=== PATIENT | male | born 1960 | race Caucasian/White ===

== ENCOUNTER 2017-12-19 06:02 | Emergency (ER) | payer MEDICARE ==
[~2017-12-19] VITALS: Ht 167.6 cm; Wt 96.8 kg
[2017-12-19 06:09] VITALS: BP 134/96; Ht 167.6 cm; Wt 96.8 kg
[2017-12-19] MEDS ORDERED: LEXAPRO5 MG (06:10)
[2017-12-19] MEDS ORDERED: BP MED (06:10)
[2017-12-19] MEDS ORDERED: PLAVIX75 MG (06:10)
[2017-12-19] MEDS ORDERED: VENTOLIN/PR2 MG/5 ML (06:10)
[2017-12-19] MEDS ORDERED: FUROSEMIDE10 MG/M1 (06:10)
[2017-12-19] MEDS ORDERED: DM MEDS (06:10)
[2017-12-19] MEDS ORDERED: COREG 3.1253.125 MG (06:10)
[2017-12-19] MEDS ORDERED: SINGULAIR 4 MG P4 MG (06:11)
[2017-12-19] MEDS ORDERED: BAYER CHEWABLE81 MG PO (06:11)
[2017-12-19] MEDS ORDERED: ADVAIR 100/501 DISK (06:11)
[2017-12-19 06:40] LABS: BASOPHILS 0.6 % (0-2); EOSINOPHILS 2.6 % (0-7); HEMATOCRIT 41.8 % (42.0-54.0); HEMOGLOBIN 14.8 g/dL (13.5-17.5); IMMATURE GRANULOCYTES 0.3 % (0-5); LYMPHOCYTES 28.3 % (15-50); MCHC 35.4 g/dL (31.0-37.0); MCV 87.4 fL (80.0-100.0); MONOCYTES 8.3 % (2-11); NEUTROPHILS 59.9 % (40-80); PLATELET COUNT 265 10x3/uL (130-400); RBC 4.78 10x6/uL (4.20-6.10); RDW 12.7 % (11.5-14.5); WBC 8.8 10x3/uL (4.8-10.8)
[2017-12-19 07:12] LABS: APPEARANCE CLEAR (CLEAR); COLOR STRAW (YELLOW); GLUCOSE 1000 mg/dL (NEGATIVE); NITRITE NEGATIVE (NEGATIVE); PROTEIN NEGATIVE (NEGATIVE)
[2017-12-19 07:13] LABS: BILIRUBIN NEGATIVE (NEGATIVE); KETONE NEGATIVE (NEGATIVE)
[2017-12-19 07:14] LABS: ALBUMIN 3.6 g/dL (3.4-5.0); ALKALINE PHOSPHATASE 146 U/L (46-116); ALT (SGPT) 20 U/L (10-68); BILIRUBIN - TOTAL 0.25 mg/dL (0.2-1.3); CALC OSMOLALITY 270 mosm/kg (275-300); CALCIUM 8.7 mg/dL (8.5-10.1); CARBON DIOXIDE 29.3 mmol/L (21.0-32.0); CHLORIDE - SERUM 98 mmol/L (98-107); CREATININE - SERUM 0.6 mg/dL (0.6-1.3); GLUCOSE 315 mg/dL (74-106); LIPASE 153 U/L (73-393); PROTEIN - SERUM 7.2 g/dL (6.4-8.2); SODIUM 130 mmol/L (136-145); UREA NITROGEN 7 mg/dL (7-18); eGFR NON AFRICAN AMERICAN > 90 mL/min (90-120)
== END 2017-12-19 09:09 | disposition home or self-care (01) ==
LOC: D.ER 06:02
PROVIDERS: Emergency Medicine
DX: M54.9 Dorsalgia, unspecified (principal); E11.9 Type 2 diabetes mellitus without complications; I10 Essential (primary) hypertension; K21.9 Gastro-esophageal reflux disease without esophagitis; F17.200 Nicotine dependence, unspecified, uncomplicated

== ENCOUNTER 2018-06-18 08:54 | Emergency (ER) | payer MEDICARE ==
[~2018-06-18] VITALS: Ht 167.6 cm; Wt 109.1 kg
[~2018-06-18 08:54] MED LIST: ADVAIR 100/501 DISK; BAYER CHEWABLE81 MG PO; BP MED; COREG 3.1253.125 MG; DM MEDS; FUROSEMIDE10 MG/M1; LEXAPRO5 MG; PLAVIX75 MG; SINGULAIR 4 MG P4 MG; VENTOLIN/PR2 MG/5 ML
[2018-06-18 08:57] VITALS: Ht 167.6 cm; Wt 109.1 kg
[2018-06-18 09:35] LABS: BASOPHILS 0.3 % (0-2); EOSINOPHILS 1.6 % (0-7); HEMATOCRIT 42.2 % (42.0-54.0); HEMOGLOBIN 15.2 g/dL (13.5-17.5); IMMATURE GRANULOCYTES 0.3 % (0-5); LYMPHOCYTES 25.1 % (15-50); MCH 31.3 pg (26.0-34.0); MCV 86.8 fL (80.0-100.0); MEAN PLATELET VOLUME 10.7 fL (7.4-10.4); MONOCYTES 6.1 % (2-11); NEUTROPHILS 66.6 % (40-80); PLATELET COUNT 296 10x3/uL (130-400); RBC 4.86 10x6/uL (4.20-6.10); RDW 12.5 % (11.5-14.5); WBC 9.6 10x3/uL (4.8-10.8)
[2018-06-18 09:46] LABS: ALBUMIN 3.7 g/dL (3.4-5.0); ALKALINE PHOSPHATASE 105 U/L (46-116); ALT (SGPT) 17 U/L (10-68); CALC OSMOLALITY 279 mosm/kg (275-300); CALCIUM 8.7 mg/dL (8.5-10.1); CARBON DIOXIDE 23.9 mmol/L (21.0-32.0); CHLORIDE - SERUM 99 mmol/L (98-107); CREATININE - SERUM 0.6 mg/dL (0.6-1.3); GLUCOSE 284 mg/dL (74-106); SODIUM 135 mmol/L (136-145); UREA NITROGEN 13 mg/dL (7-18); eGFR NON AFRICAN AMERICAN > 90 mL/min (90-120)
[2018-06-18 09:48] LABS: AMYLASE - SERUM 40 U/L (25-115); LIPASE 202 U/L (73-393); TROPONIN-I 0.023 ng/mL (0.000-0.060)
[2018-06-18 09:50] LABS: APPEARANCE CLEAR (CLEAR); COLOR YELLOW (YELLOW); NITRITE NEGATIVE (NEGATIVE)
[2018-06-18 09:51] LABS: BACTERIA FEW /hpf (NONE SEEN); BILIRUBIN NEGATIVE (NEGATIVE); EPITHELIAL CELLS RARE /hpf (0-5); GLUCOSE 1000 mg/dL (NEGATIVE); KETONE SMALL mg/dL (NEGATIVE); PROTEIN 1+ mg/dL (NEGATIVE); RED CELLS - URINE 0-5 /hpf (0-5); UROBILINOGEN NORMAL (NORMAL)
[2018-06-18 13:10] LABS: CKMB 1.7 U/L (0.0-3.6); CREATINE KINASE 30 UL (21-232); TROPONIN-I 0.026 ng/mL (0.000-0.060)
[2018-06-18 15:50] VITALS: BP 159/106
== END 2018-06-18 15:45 | disposition home or self-care (01) ==
LOC: D.ER 08:54
PROVIDERS: Family Medicine
DX: R10.9 Unspecified abdominal pain (principal); K59.00 Constipation, unspecified; I10 Essential (primary) hypertension